=== PATIENT | female | born 1970 | race Caucasian/White ===

== ENCOUNTER 2019-07-10 08:49 | Outpatient (RCR) | payer OTHER, SELFPAY ==
--- NOTE | 2019-07-10 11:14 | HP.OTFCE_ITS ---
HP OT Functional Capacity Eval Date of Evaluation: 07/10/19 - Task Lift Floor (Occasional 1-33% of Day): 10lb Floor (Frequent 34-66% of Day): Negligible Floor (Constant 67-100% of Day): Negligible Floor PDL: Sedentary Knee (Occasional 1-33% of Day): 10lb Knee (Frequent 34-66% of Day): Negligible Knee (Constant 67-100% of Day): Negligible Knee PDL: Sedentary Waist (Occasional 1-33% of Day): 10lb Waist (Frequent 34-66% of Day): Negligible Waist (Constant 67-100% of Day): Negligible Waist PDL: Sedentary Shoulder (Occasional 1-33% of Day): 10lb Shoulder (Frequent 34-66% of Day): Negligible Shoulder (Constant 67-100% of Day): Negligible Shoulder PDL: Sedentary Overhead (Occasional 1-33% of Day): 10lb Overhead (Frequent 34-66% of Day): Negligible Overhead (Constant 67-100% of Day): Negligible Overhead PDL: Sedentary - Work Activity/Posture Bending: Occasional Ability (1-33% of day) Squatting: Occasional Ability (1-33% of day) Kneeling: Occasional Ability (1-33% of day) Reaching out: Occasional Ability (1-33% of day) Reaching up: Occasional Ability (1-33% of day) Sitting: Frequent Ability (34-66% of day) Walking: Occasional Ability (1-33% of day) Standing: Occasional Ability (1-33% of day) - Reference Duration Sedentary Sedentary Light Light Light Medium Medium Medium Heavy Very Heavy Heavy Occasional (0-33% of day) Frequent (34-66% of day) Constant (67-100% of day) 10 # Negligible Negligible 15 # 8 # Negligible 20 # 10# Negli. 35 # 18 # 7 # 50 # 25 # 10 # 75 # 100 # >100 # 38 # 50 # >50 # 15 # 20 # >20 # - Patient Information Height: 5 ft 2 in Weight:: 60.328 kg Hand Dominance: Right - Medical History Medical History Including Restrictions: Pt reports the following PMHx: Rheumatoid arthritis, orthoscopic L knee sx 1988, 1982. Appendectomy 2010. - Diagnoses Diagnoses: Pt reports the following PMHx: Rheumatoid arthritis, orthoscopic L knee sx 1988, 1982. Appendectomy 2010. - Symptoms Symptoms: Pt reports the following symptoms; swelling, aching pain, increased stiffness all over body. - Pain Pain: Pt reports the following pain: In morning when she wakes up, she has increased stiffness and swelling all over her body in all joints. Aching pain 7/10 all over body primarily hands and back. Through-out the day it depends on activities she does as to how she feels. If she over does it with something she has increased pain throughout her body over the next few days. - Work History Work History: Pt reports she has been on disability since 1997. - Behavioral Behavioral: No behavioral or social concerns. - ADLS ADLS: Pt lives with her spouse in a 1 story house with 3 steps to enter from her main entrance with 2 handrails. Pt amb no device and states no falls in the past 3 months but has std cane and rollator available if needed (does not need at this time). Pt independent with BADLs. Pt independent with light meal prep, requires assist with heavy meal prep and lifting things out of oven such as a turkey. Pt independent with laundry tasks. She states it's on the main level and lifted up on pedistol to make easier for pt to get in/out of to gather clothes. Pt does drive. Pt able to go to grocery store and shop however, has to have help to load/unload car with groceries. Pt has 2 dogs but able to just let them out the door to go out. She doesn't have to walk them on leash. Pt's spouse carries dog food bags. Pt's bathroom; Tub/shower, no grab bars, HHS. Has shower chair available but does't need it. Comfort height commode and raised toilet seat. Sleeps in regular bed. - Physical Examination ROM: Bilateral Shoulders WFL AROM, bilateral elbows WFL AROM, R wrist flexion - 15 extension naturally fused, unable to move, L wrist AROM 40/40. AROM digits; R thumb IP -30 /40, IP 0/30', IF- MP 0/65, PIP -45/72, DIP 0/38, MF- MP 0/73', PIP -50/85, DIP 0/34 RF- MP -3'/45', PIP -90'/77' DIP 0'/40', PF- MP 0/89', PIP 0'/85', DIP 0'/76'. L hand IF MP 0'/85', PIP 0'/85', DIP 0/75 MF MP 0'/86', PIP -5'/85', DIP 0'/65', RF MP 0'/84', PIP -10'/90', DIP 0'/70' PF MP 0'/90', PIP - 10'/90' DIP 0'/70'. Pt demonstrates limited ROM bilateral digits see above for all measurements. BLE ROM WFL Strength: Generalized MMT R UE 3+/5, L UE 3+/5 R LE 4-/5, L LE 4-/5. 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 Right President Practicing Urologist Strength Average: 20.00 Left President Practicing Urologist Strength Average: 25.33 Right Lateral Pinch Average: 3.00 Left Lateral Pinch Average: 3.00 Right Tripod Pinch Average: 1.00 Left Tripod Pinch Average: 1.00 Sensation: No numbness or tingling. Fine Motor: Pt reports has difficulty with manipulating buttons do to her limited function of fingers, tends to wear pull on clothes. 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 Balance: Pt reports no falls in past 3 months. No loss of balance noted during completion of testing. Pt demo good righting reactions. - Non Material Handling Activities Bendinx, 10x, 4x fast had to stop secondary to increased pain bilateral knees Squattinx, 7x bilateral knee pain burning pain and knees grinding. Kneelinx, 10x, declined to participate with 10 fast pace, secondary to bilateral knee pain, R hip pain, bilateral arm pain using desk and chair for support R/L side to help pull her up from kneeling position and slow pace to complete 10. Reaching out/up: Reaching up 1x, 10x, 10x fast, Reaching out to R/L sides 1x, 10x, 10x fast. Walking: Pt able to complete 6 min 37 second walk test then had to sit secondary to L ankle and bilateral knee pain. Unable to complete entire 15 minute walk test. Standing: Pt able to stand for short amounts of time between tasks as needed, preferred to sit between physical activities secondary to bilateral knee pain. Sitting: Pt able to sit for 34 min in beginning of test w/o moving around or grimicing noted while seated. Climbing Stairs: Pt able to climb flight of 10 steps reciprocal motion using L hand on handrail only going up and both hands on handrails coming down. - Dynamic Occasional Lifting Capacity Floor Lift: 10lb max Knee Lift: 10lb max Waist Lift: 10lb max Shoulder Lift: 10lb max Overhead Lift: 10lb max Carryinlb max able to carry 36ft Comments: Pt 10lb max for all lifting tasks. 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
== END 2019-07-10 19:00 | disposition home or self-care (01) ==
LOC: OT 08:49
PROVIDERS: Family Provider Family Medicine; PCP Family Medicine; Referring Provider Family Medicine; Visit Provider Family Medicine
DX: M06.9 Rheumatoid arthritis, unspecified (principal)
CPT/HCPCS: 97165; 97167